=== PATIENT | female | born 1950 | race Caucasian/White ===

== ENCOUNTER 2018-10-29 13:31 | Day surgery (SDC) | payer OTHER, SELFPAY ==
--- NOTE | 2018-10-27 19:19 | PM.PREOP ---
Pre-operative Note Interval Note History & Physical reviewed/Exam performed by Physician: Yes Changes to H&P: No
--- NOTE | 2018-10-27 19:20 | PM.OP.1 ---
Operative Date/Time/Diagnoses Date of procedure: 10/29/18 Time of procedure: 14:15 Procedure & Clinicians Procedure: Preoperative diagnoses: 1. Right nuclear sclerotic cataract 2. Astigmatism which is to be corrected with a toric intraocular lens implant. Postoperative diagnoses: 1. Cataract removal with phacoemulsification with toric posterior chamber intraocular lens implant placed. Procedure: Phacoemulsification with posterior chamber toric intraocular lens implant. Surgeon: Hawa Evans MD Complications: None Specimen: None Implant: [id number] [place] 090 Blood loss: None Anesthesia: Retrobulbar with monitored standby Description of procedure: Patient presents with a complaint of decreased vision due to cataract which is affecting activities of daily living. The patient wants surgery to improve vision and elects to correct astigmatism as well. The patient was taken to the operating room and proparacaine drops placed. Indelible ink flowers were placed at the 90 and 180 degree meridian. The patient was placed on the operating room table and given IV sedation. A retrobulbar block insert consisting of 6 cc of 2% xylocaine without epinephrine mixed half and half with 0.5% Marcaine with 1 cc of hyaluronidase added is placed between the medial and lateral 1/3 of the inferior orbital rim.The eye is manually massaged for 30 sec, prepped using Betadine solution, and draped in the usual sterile fashion. Temporal approach was made, a 1 mm side-port incision was made 90? from the proposed corneal wound. Phenylephrine 1.5% mixed with 1% xylocaine 0.2 cc was placed into the anterior chamber. Viscoat followed by Irene was then placed. A 2.6 mm clear incision with a 2.6 mm blade was placed at the 170 degree meridian. A 360 degree capsulorrhexis style capsulotomy was then performed with a cystitome needle on a Healon. Hydrodelineation and hydrodissection were performed. The phacoemulsification unit is introduced, and sculpting used to groove the central lens. It is then removed in chopping mode. Epi nucleus is removed with epinuclear mode and irrigation aspiration was used to remove the peripheral cortex. The posterior capsule is polished. The intraocular lens is selected, inspected, power confirmed, and placed in the posterior chamber at the desired meridian of 90?. The pupil was not constricted. The wound was stromally hydrated and tested for leaks, there was none and it was left sutureless. Vigamox 0.1 cc was placed into the anterior chamber. Kenalog 0.2 cc was placed in the superior subconjunctival space. A drop of antibiotic and was placed and the eye was patched and shielded. The patient was stable and returned to the recovery room in excellent condition. Dictated by: Hawa Evans MD Copy to: [facility]
[2018-10-29 14:39] VITALS: BP 146/97; PULSE 54; RESP 16; TEMP 36.3; BMI 23.8
[2018-10-29] MEDS: PROPARACAINE 0.5% OPHTH SOL 2 DROPS EYE-OP (15:21)
[2018-10-29] MEDS: CATARACT EYE COMPOUND (10 DROPS/SYRINGE) 3 DROPS EYE-OP (15:29)
[2018-10-29] MEDS: PHENYLEPHRINE/LIDOCAINE VIAL (OR) 0.2 ML EYE-OP (16:53)
[2018-10-29] MEDS: MOXIFLOXACIN INJ 5 MG/ML VIAL EYE-OP (16:54)
[2018-10-29] MEDS: TRIAMCINOLONE 50 MG/5 ML VIAL INJ (16:54)
[2018-10-29] MEDS: CHONDROIDTIN/SOD HYALURONATE 1.05 ML SYRINGE INTRAOCULA (16:54)
[2018-10-29] MEDS: HYALURONATE SODIUM 10 MG/ML SYRINGE INJ (16:55)
[2018-10-29] MEDS: BALANCED SALT IRRIG SOLN NO.2 500 ML, EPINEPHrine 1 MG IRR (16:55)
[2018-10-29] MEDS: BALANCED SALT IRRIG SOLN NO.2 15 ML IRR (16:55)
[2018-10-29] MEDS: LIDOCAINE 2% 4 ML, BUPIVACAINE 0.5% (PF) 4 ML, HYALURONIDASE 150 UNIT INJ (16:56)
[2018-10-29] MEDS: ERYTHROMYCIN OPHTH 1 GM OINT 1 APPLIC EYE-RIGHT (16:58)
[2018-10-29 17:25] VITALS: BP 157/89; PULSE 59; RESP 16; TEMP 36.3; O2SAT 100
== END 2018-10-29 17:40 | disposition home or self-care (01) ==
LOC: OR 13:38
PROVIDERS: PCP Family Medicine; Visit Provider Ophthalmology
PROC: (CPT 66984; principal; 2018-10-29 14:15)
DX: H25.11 Age-related nuclear cataract, right eye (principal); H52.201 Unspecified astigmatism, right eye
CPT/HCPCS: 66984; J0171; J2704; J3301; J3470; V2787

== ENCOUNTER 2018-11-12 11:47 | Day surgery (SDC) | payer OTHER, SELFPAY ==
--- NOTE | 2018-11-08 12:51 | PM.PREOP ---
Pre-operative Note Interval Note History & Physical reviewed/Exam performed by Physician: Yes Changes to H&P: No
--- NOTE | 2018-11-08 12:51 | PM.OP.1 ---
Operative Date/Time/Diagnoses Date of procedure: 11/12/18 Time of procedure: 13:15 Procedure & Clinicians Procedure: Preoperative diagnoses: 1. Left Cortical and nuclear sclerotic cataract 2. Astigmatism which is to be corrected with a toric intraocular lens implant. 3. Multiple sclerosis. 4. Depression 5. Short axial length. Postoperative diagnoses: 1. Cataract removal with phacoemulsification with toric posterior chamber intraocular lens implant placed. Procedure: Phacoemulsification with posterior chamber toric intraocular lens implant. Surgeon: Hawa Evans MD Complications: None Specimen: None Implant: [id number] axis 086 Blood loss: None Anesthesia: Retrobulbar with monitored standby Description of procedure: Patient presents with a complaint of decreased vision due to cataract which is affecting activities of daily living. The patient wants surgery to improve vision and astigmatism. The patient was taken to the operating room and proparacaine drops placed. Indelible ink flowers were placed at the 90 and 180 degree meridian. The patient was placed on the operating room table and given IV sedation. A retrobulbar block insert consisting of 6 cc of 2% xylocaine without epinephrine mixed half and half with 0.5% Marcaine with 1 cc of hyaluronidase added is placed between the medial and lateral 1/3 of the inferior orbital rim. The eye is manually massaged for 30 sec, prepped using Betadine solution, and draped in the usual sterile fashion. Temporal approach was made, a 1 mm side-port incision was made 90? from the proposed corneal wound. Phenylephrine 1.5% mixed with 1% xylocaine 0.2 cc was placed into the anterior chamber. Viscoat followed by Irene was then placed. A 2.6 mm clear incision with a 2.6 mm blade was placed at the 170 degree meridian. A 360 degree capsulorrhexis style capsulotomy was then performed with a cystitome needle on a Healon. Hydrodelineation and hydrodissection were performed. The phacoemulsification unit is introduced, and sculpting used to groove the central lens. It is then removed in chopping mode. Epi nucleus is removed with epinuclear mode and irrigation aspiration was used to remove the peripheral cortex. The posterior capsule is polished. The intraocular lens is selected, inspected, power confirmed, and placed in the posterior chamber at the desired meridian of 086 degrees. The pupil was not constricted. The wound was stromally hydrated and tested for leaks, there was none and it was left sutureless. Vigamox 0.1 cc was placed into the anterior chamber. Kenalog 0.2 cc was placed in the superior subconjunctival space. A drop of antibiotic and was placed and the eye was patched and shielded. The patient was stable and returned to the recovery room in excellent condition. Dictated by: Hawa Evans MD Copy to: [facility]
[2018-11-12] MEDS: PROPARACAINE 0.5% OPHTH SOL 2 DROPS EYE-OP ×2 (12:14→13:21)
[2018-11-12] MEDS: CATARACT EYE COMPOUND (10 DROPS/SYRINGE) 3 DROPS EYE-OP (12:15)
[2018-11-12 12:28] VITALS: BP 130/73; PULSE 55; RESP 18; TEMP 36.6; O2SAT 100; BMI 23.8
[2018-11-12] MEDS: LIDOCAINE 2% 4 ML, BUPIVACAINE 0.5% (PF) 4 ML, HYALURONIDASE 150 UNIT INJ (13:28)
[2018-11-12] MEDS: CHONDROIDTIN/SOD HYALURONATE 1.05 ML SYRINGE INTRAOCULA (13:44)
[2018-11-12] MEDS: HYALURONATE SODIUM 10 MG/ML SYRINGE INJ (13:46)
[2018-11-12] MEDS: ERYTHROMYCIN OPHTH 1 GM OINT 1 APPLIC EYE-LEFT (13:46)
[2018-11-12] MEDS: MOXIFLOXACIN INJ 5 MG/ML VIAL EYE-OP (13:47)
[2018-11-12] MEDS: TRIAMCINOLONE 50 MG/5 ML VIAL INJ (13:48)
[2018-11-12] MEDS: PHENYLEPHRINE/LIDOCAINE VIAL (OR) 0.2 ML EYE-OP (13:48)
[2018-11-12] MEDS: BALANCED SALT IRRIG SOLN NO.2 500 ML, EPINEPHrine 1 MG IRR (13:50)
[2018-11-12 14:33] VITALS: BP 149/85; PULSE 59; RESP 15; TEMP 36.6; O2SAT 100
== END 2018-11-12 14:25 | disposition home or self-care (01) ==
LOC: OR 11:59
PROVIDERS: Family Provider Family Medicine; PCP Family Medicine; Visit Provider Ophthalmology
PROC: (CPT 66984; principal; 2018-11-12 13:15)
DX: H25.812 Combined forms of age-related cataract, left eye (principal); G35 Multiple sclerosis; F32.9 Major depressive disorder, single episode, unspecified
CPT/HCPCS: 66984; J0171; J2704; J3301; J3470; V2787

== ENCOUNTER → 2019-10-15 09:31 | Outpatient (CLI) | payer MEDICARE, SELFPAY ==
--- NOTE | 2019-10-15 09:52 | DI.CT.S_ITS ---
PROCEDURE: CT CHEST WO CON INDICATIONS: history nodule TECHNIQUE: Noncontrast 5 mm thick sections acquired from the pulmonary apices to the posterior costophrenic angles. 1 mm lung window, 5 mm thick coronal and sagittal and 7 mm axial MIP reformats were then acquired. For radiation dose reduction, the following was used: automated exposure control, adjustment of mA and/or kV according to patient size. COMPARISON: [facility], CT, CT LOW DOSE LUNG CA SCREENING, 08/13/2018, 11:56. FINDINGS: Image quality: Excellent. Lungs and pleura: No acute air space opacities. Multiple, small, 2-3 millimeter in diameter nodules involving the lungs bilaterally are stable compared to August 13, 2018 in size, contour and number. Reference nodules: 2 millimeter left upper lobe subpleural nodule (series 3, image 90) is stable compared to August 13, 2018. 3 millimeter left upper lobe subpleural nodule (series 3, image 90) is stable. 2 millimeter left upper lobe subpleural nodule (series 3, image 142) is stable. 2 millimeter calcified granuloma in the right middle lobe (series 3, image 163) is stable. No pleural effusions or pneumothorax. Central and peripheral airways are patent and normal in caliber. Mediastinum: Heart size is normal. No pericardial effusion. No mediastinal adenopathy by size criteria. Thoracic aorta and central pulmonary arteries are normal in size. Esophagus is normal in caliber. No hiatal hernia. Bones and chest wall: No suspicious bony lesions. No vertebral body compression fractures. No axillary or supraclavicular adenopathy by size criteria. Thyroid gland is normal where visualized. Abdomen: Visualized upper abdominal solid organs and bowel loops appear normal in the absence of contrast. IMPRESSION: 1. Stable examination compared to August 13, 2018. 2. Multiple, small, 2-3 millimeter in diameter bilateral lung nodules are stable in size, contour and number. Nodules have benign appearance consistent with LungRads category 2. Continued annual surveillance recommended. Dictated by: Tahira Khan MD, PhD on 10/15/2019 at 12:07 Approved by: Tahira Khan MD, PhD on 10/15/2019 at 12:32
== END ==
PROVIDERS: Family Provider Family Medicine; PCP Family Medicine; Referring Provider Family Medicine; Visit Provider Family Medicine
DX: R91.8 Other nonspecific abnormal finding of lung field (principal); R93.89 Abnormal findings on diagnostic imaging of other specified body structures
CPT/HCPCS: 71250

== ENCOUNTER → 2020-05-30 12:23 | Outpatient (CLI) | payer MEDICARE, SELFPAY ==
[2020-05-30 20:27] LABS: BUN Creatinine Ratio 16.7 (6-22); Blood Urea Nitrogen 12 mg/dL (7-17); Calcium 9.8 mg/dL (8.4-10.2); Carbon Dioxide 29 mmol/L (22-32); Chloride 105 mmol/L (98-107); Estimated Glomerular Filt Rate > 60.0 mL/min (>60); Glucose 100 mg/dL (80-110); HEMOLYSIS < 15 (0-50); Potassium 4.3 mmol/L (3.4-5.1); Sodium 141 mmol/L (137-145)
== END ==
PROVIDERS: Family Provider Family Medicine; PCP Family Medicine; Visit Provider Family Medicine
DX: Z01.812 Encounter for preprocedural laboratory examination (principal)
CPT/HCPCS: 80048

== ENCOUNTER → 2020-12-13 09:44 | Outpatient (CLI) | payer MEDICARE, SELFPAY ==
[2020-12-13 19:10] LABS: Add Manual Diff / Slide Review NO; Basophils Absolute Auto 100 /uL (0-100); Basophils Percent Auto 1.1 % (0-2); Eosinophils Absolute Auto 100 /uL (0-450); Eosinophils Percent Auto 2.2 % (2-4); Hematocrit 40.5 % (36-46); Hemoglobin 13.5 g/dL (12.0-16.0); Lymphocytes Absolute Auto 1600 /uL (1100-4500); Lymphocytes Percent Auto 28.1 % (25-40); Mean Corpuscular HGB Conc 33.4 % (30-36); Mean Corpuscular Hemoglobin 29.4 PG (26-34); Mean Corpuscular Volume 88.1 fL (80-100); Monocytes Absolute Auto 500 /uL (0-900); Monocytes Percent Auto 8.7 % (3-14); Neutrophils Absolute Auto 3400 /uL (1500-7000); Neutrophils Percent Auto 59.9 % (50-75); Platelet Count 246 X10^3/uL (150-400); Red Cell Distribution Width 13.3 % (11.6-14.8); White Blood Cell Count 5.7 X10^3/uL (4.5-11.0)
[2020-12-13 19:17] LABS: Alanine Aminotransferase 25 IU/L (<35); Albumin 4.1 g/dL (3.5-5.0); Albumin Globulin Ratio 1.5 (1.0-2.8); Alkaline Phosphatase 77 U/L (38-126); Aspartate Aminotransferase 35 IU/L (14-36); BUN Creatinine Ratio 14.1 (6-22); Bilirubin Total 0.6 mg/dL (0.2-1.3); Blood Urea Nitrogen 12 mg/dL (7-17); Calcium 9.7 mg/dL (8.4-10.2); Carbon Dioxide 28 mmol/L (22-32); Chloride 106 mmol/L (98-107); Cholesterol 231 mg/dL (140-199); Estimated Glomerular Filt Rate > 60.0 mL/min (>60); Globulin 2.8 g/dL (1.7-4.1); Glucose 99 mg/dL (80-110); HDL Cholesterol 89 mg/dL (40-60); HEMOLYSIS < 15 (0-50); LDL Cholesterol Calculated 129 mg/dL (<100); Potassium 4.2 mmol/L (3.4-5.1); Sodium 140 mmol/L (137-145); Total Protein 6.9 g/dL (6.3-8.2); Triglycerides 63 mg/dL (35-150); VLDL Cholesterol Calculated 13 mg/dL (2-30)
[2020-12-13 19:52] LABS: TSH w/ Reflex to FT4 1.25 uIU/mL (0.47-4.68)
== END ==
PROVIDERS: Family Provider Family Medicine; PCP Family Medicine; Visit Provider Family Medicine
DX: E03.9 Hypothyroidism, unspecified (principal); M06.00 Rheumatoid arthritis without rheumatoid factor, unspecified site
CPT/HCPCS: 80053; 80061; 84443; 85025

== ENCOUNTER 2022-09-03 12:31 | Emergency (ER) | payer MEDICARE, SELFPAY ==
[2022-09-03 12:37] VITALS: BP 171/86; PULSE 63; RESP 16; TEMP 36.3; O2SAT 99; BMI 22.6
--- NOTE | 2022-09-03 13:28 | DI.RAD.S_ITS ---
PROCEDURE: XR HAND RT MIN 3V INDICATIONS: swollen, warm, erythematous hand TECHNIQUE: 3 views of the hand(s) acquired. COMPARISON: [facility] ([place]), CR, XR HAND RT MIN 3V, 08/28/2022, 12:32. FINDINGS: Bones: No fractures or dislocations. Carpal bones are normally aligned. No suspicious bony lesions. Interphalangeal joint space narrowing with associated osteophytosis. Trapezium resection. Soft tissues: No suspicious soft tissue calcifications. IMPRESSION: No acute bony abnormality. 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 Dictated by: Fredrick Vieira M.D. on 09/03/2022 at 14:36 Approved by: Fredrick Vieira M.D. on 09/03/2022 at 14:37
[2022-09-03 13:54] LABS: Add Manual Diff / Slide Review NO; Basophils Absolute Auto 100 /uL (0-100); Eosinophils Absolute Auto 100 /uL (0-450); Hematocrit 38.1 % (36-46); Hemoglobin 13.1 g/dL (12.0-16.0); Lymphocytes Absolute Auto 1300 /uL (1100-4500); Mean Corpuscular HGB Conc 34.3 % (30-36); Mean Corpuscular Volume 87.4 fL (80-100); Monocytes Absolute Auto 800 /uL (0-900); Monocytes Percent Auto 8.9 % (3-14); Neutrophils Absolute Auto 6700 /uL (1500-7000); Neutrophils Percent Auto 75.1 % (50-75); Platelet Count 257 X10^3/uL (150-400); Red Blood Cell Count 4.36 X10^6/uL (4.0-5.2); Red Cell Distribution Width 13.5 % (11.6-14.8); White Blood Cell Count 8.9 X10^3/uL (4.5-11.0)
[2022-09-03 14:03] LABS: INR 1.1 (0.9-1.3); Prothrombin Time 12.3 SECONDS (10.1-12.7)
[2022-09-03 14:05] LABS: PTT Partial Thromboplastin Tim 30 SECONDS (26-36)
[2022-09-03 14:19] LABS: Erythrocyte Sedimentation Rate 24 MM/HR (0-20)
[2022-09-03 14:20] LABS: Alanine Aminotransferase 63 IU/L (<35); Albumin 4.3 g/dL (3.5-5.0); Albumin Globulin Ratio 1.3 (1.0-2.8); Alkaline Phosphatase 119 U/L (38-126); Aspartate Aminotransferase 69 IU/L (14-36); BUN Creatinine Ratio 18.8 (6-22); Bilirubin Total 0.6 mg/dL (0.2-1.3); Blood Urea Nitrogen 13 mg/dL (7-17); C-Reactive Protein Quant 1.9 mg/dL (<1.0); Calcium 9.2 mg/dL (8.4-10.2); Carbon Dioxide 29 mmol/L (22-32); Chloride 102 mmol/L (98-107); Estimated Glomerular Filt Rate > 60 mL/min (>60); Globulin 3.4 g/dL (1.7-4.1); Glucose 96 mg/dL (80-110); Potassium 3.5 mmol/L (3.4-5.1); Sodium 137 mmol/L (137-145); Total Protein 7.7 g/dL (6.3-8.2)
[2022-09-03 14:21] LABS: HEMOLYSIS < 15 (0-50)
--- NOTE | 2022-09-03 14:54 | ED.SKABFB ---
HPI - Skin/Abscess/Foreign Bdy <Farhan Richard PA-C - Last Filed: 09/03/22 17:08> General Chief complaint: Skin/Abscess/Foreign Body Stated complaint: sent from ceci Thomas Time Seen by Provider: 09/03/22 13:15 History of Present Illness HPI narrative: 72-year-old female with past medical history multiple sclerosis, recurrent UTIs, hypothyroidism, ulcerative colitis, hypertension, osteoporosis presents to the ED with 2 days of right hand pain, swelling, warmth. Patient states that she had a small injury on her right thumb for which she was put on doxycycline, patient took the doxycycline for 5 days, the thumb healed well and is not painful or symptomatic anymore. Patient however states that yesterday her other 4 fingers palm and distal forearm started feeling painful, swollen, red, warm to touch. Patient was seen by her PCP earlier today, given 1 g of ceftriaxone, was sent to the ED due to concern for cellulitis versus tenosynovitis. Patient's doctor was concerned that patient might need vancomycin which is why she sent her to the ED. patient endorses pain, is holding her fingers 2-5 in flexion due to pain on extension. Patient also endorses pain with wrist movement. Patient denies fever, chills, nausea, vomiting. Patient denies numbness, tingling, weakness. Related Data Home Medications Medication Instructions Recorded Confirmed levothyroxine 88 mcg tablet 88 mcg PO DAILY 10/29/18 09/03/22 Previous Rx's Medication Instructions Recorded doxycycline hyclate 100 mg capsule 100 mg PO BID #14 caps 08/28/22 amoxicillin 875 mg-potassium 1 tab PO Q12H 7 days #14 tabs 09/03/22 clavulanate 125 mg tablet Allergies Allergy/AdvReac Type Severity Reaction Status Date / Time codeine Allergy INCREASES Verified 09/03/22 09:01 DEPRESSION SYMTOMS Sulfa (Sulfonamide AdvReac Verified 09/03/22 09:01 Antibiotics) Review of Systems <Farhan Richard PA-C - Last Filed: 09/03/22 17:08> Review of Systems ROS Unobtainable: All systems reviewed & are unremarkable except as noted in HPI and below Constitutional Constitutional: Denies chills, Denies fatigue, Denies fever(s), Denies frequent falls, Denies lethargy and Denies weakness Eyes Eyes: Denies change in vision, Denies eye discharge, Denies irritation and Denies loss of vision ENT Ears, Nose, Mouth, and Throat: Denies change in voice, Denies dizziness, Denies neck pain, Denies sore throat and Denies throat swelling Cardiovascular Cardiovascular: Denies chest pain, Denies irregular heart rhythm, Denies lightheadedness, Denies palpitations, Denies dyspnea, Denies dyspnea on exertion and Denies orthopnea Respiratory Respiratory: Denies cough, Denies dyspnea, Denies dyspnea on exertion and Denies wheezing Gastrointestinal Gastrointestinal: Denies abdominal pain, Denies change in bowel habits, Denies diarrhea, Denies nausea and Denies vomiting Genitourinary Genitourinary: Denies hematuria, Denies flank pain, Denies urinary incontinence and Denies urinary urgency Musculoskeletal Musculoskeletal: Denies back pain, Denies muscle weakness, Denies neck pain, Denies numbness and Denies tingling Integumentary/Breasts Skin/Breast: Denies pruritus, Denies erythema, Denies rash and Denies wounds Comments: Swollen, tenderness, warmth, redness of right hand, distal forearm Neurologic Neurologic: Denies behavioral changes, Denies confusion, Denies dizziness, Denies frequent falls, Denies loss of vision, Denies numbness, Denies tingling and Denies weakness Psychiatric Psychiatric: Denies anxiety, Denies behavioral changes, Denies confusion, Denies depression, Denies homicidal ideation and Denies suicidal ideation Endocrine Endocrine: Denies fatigue, Denies flushing and Denies palpitations Hematologic/Lymphatic Hematologic/Lymphatic: Denies easy bruising Allergic/Immunologic Allergic/Immunologic: Denies urticaria, Denies throat swelling and Denies wheezing Patient History <Farhan Richard PA-C - Last Filed: 09/03/22 17:08> Medical History Hypothyroidism (02/03/02) Tobacco use Social History household members: none Smoking Status: Current some day smoker additional social history: QUIT DATE SMOKIN Smoking Status: Current some day smoker Exam <Farhan Richard PA-C - Last Filed: 09/03/22 17:08> Narrative Exam Narrative: Const General:?cooperative, healthy appearing and comfortable HENLA Head:?normal to inspection Ears:?hearing grossly normal bilaterally Nose:?external nose normal Face and sinus:?normal facial exam and sinuses nontender Mouth:?oral mucosae normal Throat:?posterior oropharynx normal Eyes General:?appearance normal, both eyes and all related structures Neck Neck:?normal visual inspection and no lymphadenopathy noted Resp Effort & Inspection:?normal respiratory effort Auscultation:?clear to auscultation bilaterally Cardio Rate:?regular rate Rhythm:?regular rhythm Integumentary Swelling, tenderness, erythema, warmth of right digits 2-5, distal forearm. There is full range of motion. Range of motion is limited by pain. Strength and sensation is intact. Patient is neurovascularly intact. There is no flexor tendon sheath tenderness. Presentation not consistent with infectious tenosynovitis. Presentation more consistent with cellulitis. Borders of the erythema are marked with a surgical marker by her PCP. Neuro General:?patient alert, patient awake and patient oriented x3 Initial Vital Signs Initial Vital Signs: Vital Signs Temperature 97.3 F L 09/03/22 12:37 Pulse Rate 63 09/03/22 12:37 Respiratory Rate 16 09/03/22 12:37 Blood Pressure 171/86 H 09/03/22 12:37 Pulse Oximetry 99 09/03/22 12:37 Oxygen Delivery Method Room Air 09/03/22 12:37 <Makenzie Bills DO - Last Filed: 09/04/22 08:33> Initial Vital Signs Initial Vital Signs: Vital Signs Temperature 97.3 F L 09/03/22 12:37 Pulse Rate 63 09/03/22 12:37 Respiratory Rate 16 09/03/22 12:37 Blood Pressure 171/86 H 09/03/22 12:37 Pulse Oximetry 99 09/03/22 12:37 Oxygen Delivery Method Room Air 09/03/22 12:37 Course <Farhan Richard PA-C - Last Filed: 09/03/22 17:08> Orders Ordered: ED Orders 09/03/22 13:28 XR hand RT min 3V Stat 09/03/22 13:40 CBC Auto Diff [Complete Blood Count AUTO DIFF] Stat CMP [Comprehensive Metabolic Panel] Stat CRP [C-Reactive Protein Quant] Stat ESR [Erythrocyte Sedimentation Rate] Stat PT [Prothrombin Time INR] Stat PTT [PTT Partial Thromboplastin Favio] Stat Vital Signs Vital signs: Vital Signs - 8 hr 09/03/22 12:37 Temperature 97.3 F L Pulse Rate 63 Respiratory Rate 16 Blood Pressure 171/86 H Pulse Oximetry 99 Oxygen Delivery Method Room Air <Makenzie Bills DO - Last Filed: 09/04/22 08:33> Orders Ordered: ED Orders 09/03/22 13:28 XR hand RT min 3V Stat 09/03/22 13:40 CBC Auto Diff [Complete Blood Count AUTO DIFF] Stat CMP [Comprehensive Metabolic Panel] Stat CRP [C-Reactive Protein Quant] Stat ESR [Erythrocyte Sedimentation Rate] Stat PT [Prothrombin Time INR] Stat PTT [PTT Partial Thromboplastin Favio] Stat Vital Signs Vital signs: Vital Signs - 8 hr 09/03/22 12:37 Temperature 97.3 F L Pulse Rate 63 Respiratory Rate 16 Blood Pressure 171/86 H Pulse Oximetry 99 Oxygen Delivery Method Room Air MDM - Skin/Abscess/Foreign Bdy <Farhan Richard PA-C - Last Filed: 09/03/22 17:08> Lab Data 09/03/22 13:40 09/03/22 13:40 Labs: Lab Results 09/03/22 09/03/22 09/03/22 Range/Units 13:40 13:40 13:40 WBC 8.9 (4.5-11.0) X10^3/uL RBC 4.36 (4.0-5.2) X10^6/uL Hgb 13.1 (12.0-16.0) g/dL Hct 38.1 (36-46) % MCV 87.4 (80-100) fL MCH 30.0 (26-34) PG MCHC 34.3 (30-36) % RDW 13.5 (11.6-14.8) % Plt Count 257 (150-400) X10^3/uL Neut % (Auto) 75.1 H (50-75) % Lymph % (Auto) 14.0 L (25-40) % [place] % (Auto) 8.9 (3-14) % Eos % (Auto) 1.0 L (2-4) % Baso % (Auto) 1.0 (0-2) % Neut # (Auto) 6700 (0528-4609) /uL Lymph # (Auto) 1300 (0856-6415) /uL [place] # (Auto) 800 (0-900) /uL Eos # (Auto) 100 (0-450) /uL Baso # (Auto) 100 (0-100) /uL ESR 24 H (0-20) MM/HR PT 12.3 (10.1-12.7) SECONDS INR 1.1 (0.9-1.3) APTT 30 (26-36) SECONDS Sodium 137 (137-145) mmol/L Potassium 3.5 (3.4-5.1) mmol/L Chloride 102 (98-107) mmol/L Carbon Dioxide 29 (22-32) mmol/L BUN 13 (7-17) mg/dL Creatinine 0.69 (0.52-1.04) mg/dL Estimated GFR > 60 (>60) mL/min BUN/Creatinine Ratio 18.8 (6-22) Glucose 96 (80-110) mg/dL Calcium 9.2 (8.4-10.2) mg/dL Total Bilirubin 0.6 (0.2-1.3) mg/dL AST 69 H (14-36) IU/L ALT 63 H (<35) IU/L Alkaline Phosphatase 119 (38-126) U/L C-Reactive Protein 1.9 H (<1.0) mg/dL Total Protein 7.7 (6.3-8.2) g/dL Albumin 4.3 (3.5-5.0) g/dL Globulin 3.4 (1.7-4.1) g/dL Albumin/Globulin Ratio 1.3 (1.0-2.8) MDM Narrative Medical decision making narrative: 72-year-old female with past medical history multiple sclerosis, recurrent UTIs, hypothyroidism, ulcerative colitis, hypertension, osteoporosis presents to the ED with 2 days of right hand pain, swelling, warmth. Concern for tenosynovitis versus cellulitis that failed doxycycline therapy versus fracture/dislocation versus other. Obtained labs, ESR, CRP, coags, x-ray. X-ray without acute findings. Labs within normal limits. CRP is 1.9 which is still below the threshold up to for age corrected CRP. ESR within normal limits. Patient's symptoms are not consistent with tenosynovitis, given patient has symptoms on fingers 2 through 5, there is no tenderness along the flexor tendon sheath. Patient's symptoms most likely consistent with cellulitis which failed therapy with doxycycline. Discussed findings with patient and we agreed that she would trial Augmentin. Patient states that she has had some dizziness with Augmentin in the past, however agrees to stop if she experiences dizziness and contact her PCP. Patient agrees to follow-up with her PCP as soon as possible. ED return precautions were discussed with patient. Patient verbalized understanding. Medical records reviewed: Yes <Makenzie Negar, DO - Last Filed: 09/04/22 08:33> Lab Data Labs: Lab Results 09/03/22 09/03/22 09/03/22 Range/Units 13:40 13:40 13:40 WBC 8.9 (4.5-11.0) X10^3/uL RBC 4.36 (4.0-5.2) X10^6/uL Hgb 13.1 (12.0-16.0) g/dL Hct 38.1 (36-46) % MCV 87.4 (80-100) fL MCH 30.0 (26-34) PG MCHC 34.3 (30-36) % RDW 13.5 (11.6-14.8) % Plt Count 257 (150-400) X10^3/uL Neut % (Auto) 75.1 H (50-75) % Lymph % (Auto) 14.0 L (25-40) % [place] % (Auto) 8.9 (3-14) % Eos % (Auto) 1.0 L (2-4) % Baso % (Auto) 1.0 (0-2) % Neut # (Auto) 6700 (4886-2802) /uL Lymph # (Auto) 1300 (0836-0940) /uL [place] # (Auto) 800 (0-900) /uL Eos # (Auto) 100 (0-450) /uL Baso # (Auto) 100 (0-100) /uL ESR 24 H (0-20) MM/HR PT 12.3 (10.1-12.7) SECONDS INR 1.1 (0.9-1.3) APTT 30 (26-36) SECONDS Sodium 137 (137-145) mmol/L Potassium 3.5 (3.4-5.1) mmol/L Chloride 102 (98-107) mmol/L Carbon Dioxide 29 (22-32) mmol/L BUN 13 (7-17) mg/dL Creatinine 0.69 (0.52-1.04) mg/dL Estimated GFR > 60 (>60) mL/min BUN/Creatinine Ratio 18.8 (6-22) Glucose 96 (80-110) mg/dL Calcium 9.2 (8.4-10.2) mg/dL Total Bilirubin 0.6 (0.2-1.3) mg/dL AST 69 H (14-36) IU/L ALT 63 H (<35) IU/L Alkaline Phosphatase 119 (38-126) U/L C-Reactive Protein 1.9 H (<1.0) mg/dL Total Protein 7.7 (6.3-8.2) g/dL Albumin 4.3 (3.5-5.0) g/dL Globulin 3.4 (1.7-4.1) g/dL Albumin/Globulin Ratio 1.3 (1.0-2.8) Discharge Plan Departure Patient Disposition: Home Clinical Impression: Cellulitis Instructions: DI for Cellulitis -- Adult Activity Restrictions/Additional Instructions: You were evaluated in the ED today for a right hand infection. Your labs and x-ray were normal. It appears that you have a skin infection or cellulitis that did not respond to the doxycycline. You have been switched out to Augmentin. Please complete the course of antibiotics as prescribed. Please follow-up with your PCP as soon as possible. Return to the ED if your worsening symptoms, fever, chills. Prescriptions: New amoxicillin-pot clavulanate 875-125 mg tablet 1 tab PO Q12H 7 Days Qty: 14 0RF No Action levothyroxine 88 mcg Tablet 88 mcg PO DAILY doxycycline hyclate 100 mg capsule 100 mg PO BID Qty: 14 0RF Rx Instructions: for infection Referrals: Filomena Saldaña MD [Primary Care Provider] - Stand Alone Forms: Patient Portal/API <Makenzie Bills DO - Last Filed: 09/04/22 08:33> Cosign ED Attending Brandiature Attestation: I was immediately available in the department for consultation. Documentation has been reviewed.
--- NOTE | 2022-09-03 15:21 | PC.NURSE ---
Upon discharge, pt expressed her anger with RN regarding her travel here from the [facility] and not receiving what she thought she was coming to the ED for which was an ABX infusion. school psychometrist Nirmala in to speak to patient regarding her discussion with Dr Simeon ([facility]) and the options discussed were to schedule infusion of Vancomycin with the infusion clinic or to come to ED and be evaluated and decide plan of care at that time in which Dr Simeon went with the latter. Pt de-escalated and was appreciative for explanation. IV discontinued and pt DC'd with RX for augmentin. ambulated out of ED with steady gait.
== END 2022-09-03 15:28 | disposition home or self-care (01) ==
PROVIDERS: Emergency Provider Student in an Organized Health Care Education/Training Program; Family Provider Family Medicine; PCP Family Medicine
DX: L03.113 Cellulitis of right upper limb (principal)
CPT/HCPCS: 73130; 80053; 85025; 85610; 85651; 85730; 86140; 99283; 99284

== ENCOUNTER → 2023-04-22 09:33 | Outpatient (CLI) | payer MEDICARE, SELFPAY ==
[2023-04-22 13:00] LABS: Alanine Aminotransferase 23 IU/L (<35); Albumin 4.2 g/dL (3.5-5.0); Albumin Globulin Ratio 1.4 (1.0-2.8); Alkaline Phosphatase 78 U/L (38-126); Aspartate Aminotransferase 38 IU/L (14-36); BUN Creatinine Ratio 17.8 (6-22); Bilirubin Total 0.4 mg/dL (0.2-1.3); Blood Urea Nitrogen 13 mg/dL (7-17); Calcium 9.7 mg/dL (8.4-10.2); Carbon Dioxide 30 mmol/L (22-32); Chloride 107 mmol/L (98-107); Estimated Glomerular Filt Rate > 60 mL/min (>60); Glucose 88 mg/dL (80-110); HEMOLYSIS < 15 (0-50); Potassium 4.1 mmol/L (3.4-5.1); Sodium 141 mmol/L (137-145); Total Protein 7.2 g/dL (6.3-8.2)
[2023-04-22 13:18] LABS: Free T3, Triiodothyronine Free 3.35 pg/mL (2.77-5.27); Free T4, Direct Thyroxine 1.18 ng/dL (0.78-2.19)
[2023-04-22 13:31] LABS: Thyroid Stimulating Hormone 0.105 uIU/mL (0.47-4.68)
== END ==
PROVIDERS: Family Provider Family Medicine; PCP Family Medicine; Referring Provider Family Medicine; Visit Provider Family Medicine
DX: I47.10 Supraventricular tachycardia, unspecified (principal); E03.9 Hypothyroidism, unspecified; R03.0 Elevated blood-pressure reading, without diagnosis of hypertension
CPT/HCPCS: 36415; 80053; 84439; 84443; 84481

== ENCOUNTER → 2024-06-26 09:40 | Outpatient (CLI) | payer MEDICARE, SELFPAY ==
[2024-06-26 19:55] LABS: Cortisol AM (Before 10AM) 11.7 ug/dL (4.46-22.7)
[2024-06-26 19:58] LABS: Estradiol, Total 14.1 pg/mL
== END ==
PROVIDERS: Family Provider Family Medicine; Visit Provider Internal Medicine Endocrinology, Diabetes & Metabolism
DX: R41.89 Other symptoms and signs involving cognitive functions and awareness (principal); R23.2 Flushing
CPT/HCPCS: 82024; 82533; 82670

== ENCOUNTER → 2024-12-23 11:56 | Outpatient (CLI) | payer MEDICARE, SELFPAY ==
[2024-12-23 19:13] LABS: Add Manual Diff / Slide Review NO; Hematocrit 41.9 % (36-46); Hemoglobin 14.3 g/dL (12.0-16.0); Lymphocytes Absolute Auto 1400 /uL (1100-4500); Mean Corpuscular HGB Conc 34.1 % (30-36); Mean Corpuscular Hemoglobin 30.5 PG (26-34); Mean Corpuscular Volume 89.3 fL (80-100); Platelet Count 276 X10^3/uL (150-400)
[2024-12-23 19:38] LABS: Blood Urea Nitrogen 15 mg/dL (7-17); Calcium 9.8 mg/dL (8.4-10.2); Carbon Dioxide 30 mmol/L (22-32); Chloride 103 mmol/L (98-107); Cholesterol 249 mg/dL (140-199); Estimated Glomerular Filt Rate > 60 mL/min (>60); Glucose 95 mg/dL (70-99); HEMOLYSIS < 15 (0-50); Potassium 4.5 mmol/L (3.4-5.1); Sodium 139 mmol/L (137-145); Triglycerides 87 mg/dL (35-150)
[2024-12-23 20:01] LABS: HDL Cholesterol 116 mg/dL (40-60)
[2024-12-23 20:06] LABS: TSH w/ Reflex to FT4 0.10 uIU/mL (0.47-4.68)
[2024-12-23 20:44] LABS: Free T4, Direct Thyroxine 1.27 ng/dL (0.78-2.19)
== END ==
PROVIDERS: Visit Provider Family Medicine
DX: I10 Essential (primary) hypertension (principal); E03.9 Hypothyroidism, unspecified; K51.90 Ulcerative colitis, unspecified, without complications
CPT/HCPCS: 80048; 80061; 84439; 84443; 85025